=== PATIENT | female | born 1940 | race Caucasian/White ===

== ENCOUNTER 2021-11-09 18:26 | Inpatient (IN) | payer MEDICARE, MEDICAID ==
[~2021-11-09] VITALS: Ht 162.6 cm; Wt 62.1 kg
--- NOTE | 2021-11-09 18:45 | NUR ---
RN NOTE Report given by Jacoby from [place] at 1730. Received patient via gurney. Patient is A/O x 0, responds to name. On room air, breathing evenly and unlabored. No SOB or s/s of distress noted. IV access on Left wrist #20, SL intact and patent. Patient made comfortable. V/S taken: BP 130/68, HR 97, RR 19, Temp 97.5, SPO2 97% on room air. Open wound noted on Left hip. Abdominal distention noted. Bo catheter in place draining to a dark yellow, cloudy urine. Tele monitor attached, reading SR, HR on the 90's. Safety precautions in place: bed in low, locked position; siderails up x 2; call light within reach. Will endorse to animal biologist nurse for DULCE.
--- NOTE | 2021-11-09 19:25 | NUR ---
RN OPENING NOTES RECEIVED PT IN BED, AWAKE, WITH FAMILY MEMBER AT BEDSIDE. AOx1, CONGOLESE AND SWAZI SPEAKING. ON RA AND TOLERATING WELL. NO SOB NOTED. NO S/SX OF RESPIRATORY DISTRESS NOTED. TELE MONITOR DETECTS SINUS RHYTHM. IV ACCESS IN L WRIST #20G RUNNING NS @ 75 ML/HR. SAFETY PRECAUTIONS IN PLACE: BED IN LOWEST, LOCKED POSITION, SIDERAILS UPx2, AND BRAKES ON. TABLE AND CALL LIGHT WITHIN REACH. WILL CONTINUE TO MONITOR.
[2021-11-09] MEDS ORDERED: CEFTRIAXONE 1 G in IV D5W 50 ML IV SCH (20:00)
[2021-11-09] MEDS: IV NS 0.9% 1,000 ML IV PRN (20:54)
[2021-11-09] MEDS ORDERED: INSU100I4 SQ (21:01)
[2021-11-09] MEDS ORDERED: HYDR-4076 PO (21:01)
[2021-11-09] MEDS ORDERED: INSU100I26 SQ (21:01)
[2021-11-09] MEDS ORDERED: TRAM50TA2 PO (21:01)
[2021-11-09] MEDS ORDERED: LEVE500T9 PO (21:01)
[2021-11-09] MEDS ORDERED: CARV6.252 PO (21:01)
[2021-11-10] MEDS ORDERED: ZOLPIDEM TARTRATE 5 MG TABLET PO PRN
[2021-11-10] MEDS ORDERED: DEXTROSE 50%-WATER 50 ML DISP.SYRIN IV PRN
[2021-11-10] MEDS ORDERED: ONDANSETRON HCL/PF 4 MG/2 ML VIAL IVP PRN
[2021-11-10] MEDS ORDERED: MAGNESIUM HYDROXIDE 30 ML UDC PO PRN
[2021-11-10] MEDS: BLOOD SUGAR DIAGNOSTIC 1 EACH STRIP IN SCH ×4 (06:43→22:15)
[2021-11-10] MEDS: INSULIN REGULAR, HUMAN 100 UNIT/ML 3 ML VIAL SQ PRN ×4 (06:45→22:17)
--- NOTE | 2021-11-10 06:50 | NUR ---
RN CLOSING NOTES PT IN BED, ASLEEP, AWAKENS TO VERBAL STIMULI. AOx1, VIETNAMESE AND MOLDOVAN SPEAKING. ON RA AND TOLERATING WELL. NO SOB NOTED. NO S/SX OF RESPIRATORY DISTRESS NOTED. TELE MONITOR DETECTS SINUS RHYTHM WITH RATE OF 88. IV ACCESS IN L WRIST #20G RUNNING NS @ 75 ML/HR. ALL ORDERS CARRIED OUT. ALL NEEDS MET. PT KEPT CLEAN AND DRY. SAFETY PRECAUTIONS IN PLACE: BED IN LOWEST, LOCKED POSITION, SIDERAILS UPx2, AND BRAKES ON. TABLE AND CALL LIGHT WITHIN REACH. WILL ENDORSE TO ONCOMING SHIFT FOR DULCE.
--- NOTE | 2021-11-10 07:01 | NUR ---
CANE PILER OPENING NOTES RECEIVED PATIENT IN BED RESTING, A/O x1, CONFUSED. PATIENT IS PORTUGUESE AND MARTINIQUAIS SPEAKING, ON ROOM AIR, NO S/S OF SOB OR RESPIRATORY DISTRESS. ON TELE MONITORING, SHOWING SINUS RHYTHM AT THIS HR 89. NO S/S OF CARDIAC DISTRESS. PATIENT HAS LAZARO CATHETER, TEA/RACHNA COLORED URINE PRESENT, DRAINING WELL. IV ACCESS L WRIST #20 G WITH NS 75 ML/HR RUNNING, INTACT AND PATENT. SKIN ISSUE: L HIP SKIN TEAR, ON BED REST. SAFETY MEASURES IN PLACE: BED LOCKED AND IN LOWEST POSITION, SIDE RAILS UP x2, HEAD OF THE BED ELEVATED, CALL LIGHT WITHIN REACH. WILL CONTINUE TO MONITOR.
[2021-11-10 07:21] LABS: BASOPHILS % (AUTO) 0.2 % (0.0-2.0); EOSINOPHILS % (AUTO) 0.4 % (0.0-6.0); HEMATOCRIT 36 % (33-45); HEMOGLOBIN 11.1 g/dL (11.5-14.8); LYMPHOCYTES # (AUTO) 0.6 K/uL (0.8-4.8); LYMPHOCYTES % (AUTO) 4.8 % (20.0-44.0); MEAN CORPUSCULAR HGB CONC 31 g/dl (31.0-36.0); MEAN CORPUSCULAR VOLUME 95 fL (82-100); MONOCYTES # (AUTO) 0.9 K/uL (0.1-1.30); MONOCYTES % (AUTO) 7.3 % (2.0-12.0); NEUTROPHILS # (AUTO) 11.2 K/uL (1.8-8.9); NEUTROPHILS % (AUTO) 87.3 % (43.0-81.0); PLATELET COUNT (AUTO) 186 K/uL (150-450); WHITE BLOOD COUNT (AUTO) 12.8 K/uL (4.3-11.0)
[2021-11-10 08:00] VITALS: BP 149/56
[2021-11-10] MEDS: CARVEDILOL 6.25 MG TABLET PO SCH ×2 (08:48→16:50)
[2021-11-10] MEDS: LEVETIRACETAM (250 MG) 250 MG TABLET PO SCH ×2 (08:48→20:20)
[2021-11-10] MEDS: hydrALAZINE HCL 25 MG TABLET PO SCH (08:49)
[2021-11-10 09:02] LABS: CALCIUM, SERUM 8.3 mg/dL (8.5-10.1); CREATININE 0.8 mg/dL (0.6-1.3)
--- NOTE | 2021-11-10 09:33 | NUR ---
RN NOTED RECEIVED CALL FROM LAB ABOUT CRITICAL GLUCOSE RESULTS, INSULIN COVERAGE ADMINISTERED BY ELECTRONIC SCALE TESTER THIS MORNING, WILL CONTINUE TO MONITOR AND RECHECK GLUCOSE @1200
[2021-11-10] MEDS: ENOXAPARIN SODIUM 40 MG/0.4 ML DISP.SYRIN SQ SCH (10:40)
--- NOTE | 2021-11-10 12:20 | NUR ---
RN NOTES PATIENT IS TAKING TELEMETRY LEADS OFF, WILL CONTINUE TO EXPLAIN AND EDUCATE PATIENT ON LEADS.
[2021-11-10 16:00] VITALS: BP 131/62
--- NOTE | 2021-11-10 18:49 | NUR ---
WEB MACHINE TENDER CLOSING NOTE PATIENT IN BED RESTING, A/O x1, CONFUSED. PATIENT IS BURUNDIAN AND FRENCH SPEAKING. ON ROOM AIR, TOLERATED WELL, NO S/S OF SOB OR RESPIRATORY DISTRESS. ON TELE MONITORING, SHOWING SINUS RHYTHM AT THIS HR 80'S. NO S/S OF CARDIAC DISTRESS. PATIENT HAS LAZARO CATHETER, TEA/RACHNA COLORED URINE PRESENT, DRAINING WELL VIA GRAVITY. WITH IV ACCESS L WRIST #20 G WITH NS 75 ML/HR RUNNING, INTACT AND PATENT. SKIN ISSUE: L HIP SKIN TEAR, ON BED REST. SAFETY MEASURES IN PLACE: BED LOCKED AND IN LOWEST POSITION, SIDE RAILS UP x2, HEAD OF THE BED ELEVATED, CALL LIGHT WITHIN REACH. ENDORSED TO NEXT SHIFT FOR CONTINUITY OF CARE.
[2021-11-10 19:41] LABS: BILIRUBIN,URINE MODERATE (NEGATIVE); COLOR,URINE YELLOW (YELLOW); LEUKOCYTE ESTERASE ,URINE NEGATIVE (NEGATIVE); NITRITE, URINE NEGATIVE (NEGATIVE); PROTEIN,URINE 30 mg/dl (NEGATIVE); UGLUCOSE >=1000 mg/dL (NEGATIVE)
--- NOTE | 2021-11-10 19:50 | NUR ---
RN OPENING NOTES RECEIVED PT IN BED, AWAKE. AOx1, FRISIAN AND GUYANESE SPEAKING. ON RA AND TOLERATING WELL. NO SOB NOTED. NO S/SX OF RESPIRATORY DISTRESS NOTED. PT NON-COMPLIANT WITH TELE MONITOR. SAFETY PRECAUTIONS IN PLACE: BED IN LOWEST, LOCKED POSITION, SIDERAILS UPx2, AND BRAKES ON. TABLE AND CALL LIGHT WITHIN REACH. WILL CONTINUE TO MONITOR.
[2021-11-10 20:06] LABS: WBC,URINE 0-2 /HPF (0-3)
[2021-11-10 20:07] LABS: BACTERIA,URINE RARE /HPF (None Seen); SQUAMOUS EPITHELIAL CELL,UR 0-2 /HPF (None Seen); YEAST,URINE Moderate /HPF (None Seen)
[2021-11-10 20:14] VITALS: BP 129/78
[2021-11-10] MEDS: CEFTRIAXONE 1 G in IV D5W 50 ML IV SCH (20:20)
[2021-11-11 04:51] VITALS: BP 140/66
[2021-11-11] MEDS: BLOOD SUGAR DIAGNOSTIC 1 EACH STRIP IN SCH ×4 (06:33→21:53)
[2021-11-11] MEDS: INSULIN REGULAR, HUMAN 100 UNIT/ML 3 ML VIAL SQ PRN ×4 (06:35→21:55)
--- NOTE | 2021-11-11 06:46 | NUR ---
RN CLOSING NOTES PT IN BED, ASLEEP, AWAKENS TO VERBAL STIMULI. AOx1, NEPALI AND MONTENEGRIN SPEAKING. ON RA AND TOLERATING WELL. NO SOB NOTED. NO S/SX OF RESPIRATORY DISTRESS NOTED. PT NON-COMPLIANT WITH TELE MONITOR. ALL ORDESR CARRIED OUT. ALL NEEDS MET. PT KEPT CLEAN AND DRY. SAFETY PRECAUTIONS IN PLACE: BED IN LOWEST, LOCKED POSITION, SIDERAILS UPx2, AND BRAKES ON. TABLE AND CALL LIGHT WITHIN REACH. WILL ENDORSE TO ONCOMING SHIFT FOR DULCE.
--- NOTE | 2021-11-11 07:19 | NUR ---
HEAD BATCHER OPENING NOTE RECEIVED PATIENT IN BED RESTING, A/O x1, CONFUSED. PATIENT IS ON ROOM AIR, NO S/S OF SOB OR RESPIRATORY DISTRESS. ON TELE MONITORING, SHOWING SINUS RHYTHM AT THIS HR 89. NO S/S OF CARDIAC DISTRESS. PATIENT HAS LAZARO CATHETER, TEA/RACHNA COLORED URINE PRESENT, DRAINING WELL. IV ACCESS L WRIST #20 G WITH NS 75 ML/HR RUNNING, INTACT AND PATENT. SKIN ISSUE: L HIP SKIN TEAR, ON BED REST. SAFETY MEASURES IN PLACE: BED LOCKED AND IN LOWEST POSITION, SIDE RAILS UP x2, HEAD OF THE BED ELEVATED, CALL LIGHT WITHIN REACH. WILL CONTINUE TO MONITOR PATIENT.
[2021-11-11] MEDS: LEVETIRACETAM (250 MG) 250 MG TABLET PO SCH ×2 (08:32→21:13)
[2021-11-11] MEDS: hydrALAZINE HCL 25 MG TABLET PO SCH (08:33)
[2021-11-11] MEDS: CARVEDILOL 6.25 MG TABLET PO SCH ×2 (08:34→17:00)
[2021-11-11 08:57] LABS: BASOPHILS % (AUTO) 0.2 % (0.0-2.0); HEMATOCRIT 36 % (33-45); LYMPHOCYTES # (AUTO) 0.6 K/uL (0.8-4.8); LYMPHOCYTES % (AUTO) 5.2 % (20.0-44.0); MEAN CORPUSCULAR HGB CONC 31 g/dl (31.0-36.0); MEAN CORPUSCULAR VOLUME 92 fL (82-100); MONOCYTES # (AUTO) 0.9 K/uL (0.1-1.30); MONOCYTES % (AUTO) 7.9 % (2.0-12.0); NEUTROPHILS # (AUTO) 9.8 K/uL (1.8-8.9); NEUTROPHILS % (AUTO) 84.7 % (43.0-81.0); PLATELET COUNT (AUTO) 196 K/uL (150-450); RED BLOOD CELL COUNT(AUTO) 3.86 MIL/uL (4.0-5.2); WHITE BLOOD COUNT (AUTO) 11.6 K/uL (4.3-11.0)
[2021-11-11 09:22] LABS: CALCIUM, SERUM 7.9 mg/dL (8.5-10.1); CREATININE 0.6 mg/dL (0.6-1.3); POTASSIUM 5.2 mmol/L (3.5-5.1)
[2021-11-11] MEDS: ENOXAPARIN SODIUM 40 MG/0.4 ML DISP.SYRIN SQ SCH (09:30)
--- NOTE | 2021-11-11 09:50 | NUR ---
MS RN NOTE SEEN BY DR. ALVARENGA.
--- NOTE | 2021-11-11 10:48 | NUR ---
WOUND CARE CONSULT: PT PRESENTS WITH STAGE 3 PRESSURE ULCER TO LEFT HIP AREA, PRESENT ON ADMISSION. RECOMMENDATIONS MADE FOR SKIN PROTECTION. DISCUSSED WITH NURSING STAFF. DR JEAN NOTIFIED OF SURGICAL CONSULT REQUEST. PT IS ON TRACY ISOFLEX LOW AIRLOSS BED. VIPUL AGREEMENT WITH PLAN OF CARE. Addendum: 11/11/21 at 1050 by NICHO ABDI WNDNU Amended: Links added.
[2021-11-11] MEDS ORDERED: Z GUARD REMEDY 4 OZ OINT TP PRN (11:00)
--- NOTE | 2021-11-11 11:30 | NUR ---
MS RN NOTE SEEN BY WOUND CARE NURSE NICHO AND WIRELESS SALES ASSOCIATE JEANNINE FOR SERIAL DEBRIDEMENT. IN STABLE CONDITION.
[2021-11-11] MEDS: ACETAMINOPHEN 325 MG TABLET PO PRN (14:24)
[2021-11-11 16:01] VITALS: BP 113/54
--- NOTE | 2021-11-11 16:30 | NUR ---
MS RN NOTE SPOKE WITH PATIENT'S DAUGHTER CANDACE AND UPDATED ON PLAN, SECURED CONSENT FOR SERIAL DEBRIDEMENT AND ATTACHED TO CHART. IN STABLE CONDITION.
[2021-11-11] MEDS: THERAHONEY GEL 1.5 OZ TUBE TP SCH (16:53)
[2021-11-11] MEDS: Z GUARD REMEDY 4 OZ OINT TP SCH (16:53)
--- NOTE | 2021-11-11 19:00 | NUR ---
DOCKETING SPECIALIST CLOSING NOTE PATIENT IN BED RESTING, A/O x1-2. PATIENT IS ON ROOM AIR, NO S/S OF SOB OR RESPIRATORY DISTRESS. NO S/S OF CARDIAC DISTRESS. PATIENT HAS LAZARO CATHETER, RACHNA COLORED URINE PRESENT, DRAINING WELL. IV ACCESS L WRIST #20 G WITH NS 75 ML/HR RUNNING, INTACT AND PATENT. SKIN ISSUE: L HIP SKIN TEAR, ON BED REST. SAFETY MEASURES IN PLACE: BED LOCKED AND IN LOWEST POSITION, SIDE RAILS UP x2, HEAD OF THE BED ELEVATED, CALL LIGHT WITHIN REACH. ENDORSED PATIENT TO NEXT SHIFT FOR CONTINUITY OF CARE.
--- NOTE | 2021-11-11 19:30 | NUR ---
MS RN OPENING NOTE RECEIVED PATIENT IN BED, WITH EYES CLOSED, EASY TO AROUSE. PATIENT IS YI/GHANAIAN SPEAKING. NO S/S OF APPARENT DISTRESS IN ROOM AIR. DENIES PAIN AND DISCOMFORT AT THIS TIME. IV ACCESS NOTED TO BE OCCLUDED-- WILL REINSERT NEW ONE. LAZARO CATH NOTED TO BE DRAINING CLEAR DARK YELLOW URINE. SAFETY IN PLACE. WILL CONTINUE WITH PATIENT'S PLAN OF CARE.
[2021-11-11 20:00] VITALS: BP 104/50
[2021-11-11] MEDS: CEFTRIAXONE 1 G in IV D5W 50 ML IV SCH (21:02)
[2021-11-12] MEDS: BLOOD SUGAR DIAGNOSTIC 1 EACH STRIP IN SCH ×4 (06:44→21:43)
[2021-11-12] MEDS: INSULIN REGULAR, HUMAN 100 UNIT/ML 3 ML VIAL SQ PRN ×4 (06:45→21:46)
--- NOTE | 2021-11-12 07:23 | NUR ---
MS RN NOTE REPORT GIVEN TO ROBERTO COLLADO FOR CONTINUITY OF CARE.
[2021-11-12 08:00] VITALS: BP 113/57
[2021-11-12] MEDS: GLUCERNA SHAKE 237 ML CAN PO SCH (09:00)
[2021-11-12] MEDS: hydrALAZINE HCL 25 MG TABLET PO SCH (09:00)
[2021-11-12] MEDS ORDERED: LEVO500T90 PO (09:12)
[2021-11-12 09:49] LABS: BASOPHILS % (AUTO) 0.1 % (0.0-2.0); EOSINOPHILS % (AUTO) 1.4 % (0.0-6.0); HEMATOCRIT 35 % (33-45); HEMOGLOBIN 10.5 g/dL (11.5-14.8); LYMPHOCYTES # (AUTO) 0.7 K/uL (0.8-4.8); LYMPHOCYTES % (AUTO) 6.1 % (20.0-44.0); MEAN CORPUSCULAR HGB CONC 30 g/dl (31.0-36.0); MEAN CORPUSCULAR VOLUME 98 fL (82-100); MONOCYTES # (AUTO) 1.2 K/uL (0.1-1.30); MONOCYTES % (AUTO) 10.3 % (2.0-12.0); NEUTROPHILS # (AUTO) 9.5 K/uL (1.8-8.9); NEUTROPHILS % (AUTO) 82.1 % (43.0-81.0); PLATELET COUNT (AUTO) 173 K/uL (150-450); RED BLOOD CELL COUNT(AUTO) 3.58 MIL/uL (4.0-5.2); WHITE BLOOD COUNT (AUTO) 11.6 K/uL (4.3-11.0)
[2021-11-12 09:52] LABS: CALCIUM, SERUM 7.6 mg/dL (8.5-10.1); CREATININE 0.6 mg/dL (0.6-1.3); POTASSIUM 4.5 mmol/L (3.5-5.1)
[2021-11-12] MEDS: CARVEDILOL 6.25 MG TABLET PO SCH ×2 (10:19→17:00)
[2021-11-12] MEDS: LEVETIRACETAM (250 MG) 250 MG TABLET PO SCH ×2 (10:19→21:32)
[2021-11-12] MEDS: ENOXAPARIN SODIUM 40 MG/0.4 ML DISP.SYRIN SQ SCH (10:21)
[2021-11-12] MEDS: THERAHONEY GEL 1.5 OZ TUBE TP SCH (10:31)
[2021-11-12] MEDS: Z GUARD REMEDY 4 OZ OINT TP SCH (10:31)
[2021-11-12] MEDS: IV NS 0.9% 1,000 ML IV PRN (10:46)
[2021-11-12 13:12] LABS: BILIRUBIN,TOTAL 1.5 mg/dL (0.2-1.0); TOTAL PROTEIN, SERUM 5.8 g/dL (6.4-8.2)
[2021-11-12 13:21] LABS: BILIRUBIN,DIRECT 0.6 mg/dL (0.0-0.2)
[2021-11-12 13:36] LABS: ALBUMIN 1.4 g/dL (3.4-5.0)
[2021-11-12 14:00] LABS: THYROID STIMULATING HORMONE 1.119 uIU/mL (0.358-3.74)
[2021-11-12 16:00] VITALS: BP 110/80
[2021-11-12] MEDS: ACETAMINOPHEN 325 MG TABLET PO PRN (16:10)
--- NOTE | 2021-11-12 16:18 | NUR ---
dtr. in to visit.medicated for pain with tylenol.
--- NOTE | 2021-11-12 19:45 | NUR ---
MS RN OPENING NOTE RECEIVED PATIENT IN BED WITH EYES CLOSED, EASY TO AROUSE. NO S/S OF APPARENT DISTRESS IN ROOM AIR. DENIES PAIN NOR ANY DISCOMFORT AT THIS TIME. IV NS RUNNING @75 MLS/HR. LAZARO CATH IN PLACE. RE-ORIENTED AND ENCOURAGED WITH THE USE OF CALL LIGHT. SAFETY IN PLACE. WILL CONTINUE WITH PLAN OF CARE FOR PATIENT.
[2021-11-12 20:00] VITALS: BP 119/60
[2021-11-12] MEDS: CEFTRIAXONE 1 G in IV D5W 50 ML IV SCH (21:33)
[2021-11-13] MEDS: IV NS 0.9% 1,000 ML IV PRN (01:46)
[2021-11-13] MEDS: ACETAMINOPHEN 325 MG TABLET PO PRN ×2 (01:56→09:31)
[2021-11-13] MEDS: BLOOD SUGAR DIAGNOSTIC 1 EACH STRIP IN SCH ×4 (06:30→21:41)
[2021-11-13] MEDS: INSULIN REGULAR, HUMAN 100 UNIT/ML 3 ML VIAL SQ PRN ×4 (06:32→21:44)
[2021-11-13 07:07] LABS: IMMUNOGLOBULIN A, SERUM 465 mg/dL (64-422); IMMUNOGLOBULIN G, SERUM 1717 mg/dL (586-1602); IMMUNOGLOBULIN M, SERUM 43 mg/dL (26-217)
--- NOTE | 2021-11-13 07:27 | NUR ---
MS RN OPENING NOTES RECEIVED PT IN BED AWAKE. A/O X1-2, REORIENTED PT NEEDED. ON RA, TOLERATING WELL. NO SOB NOTED. NOT IN ANY SIGN OF RESPIRATORY DISTRESS. IV ACCESS IN R WRIST INTACT AND PATENT WITH NS INFUSING AT 75ML/HR. LAZARO CATH IN PLACE AND DRAINING WELL. SAFETY MEASURES IN PLACE: BED IN LOWEST AND LOCKED POSITION, SIDE RAILS UP, BED ALARM ON, AND CALL LIGHT WITHIN REACH.
--- NOTE | 2021-11-13 07:29 | NUR ---
MS RN CLOSING NOTE NEEDS ATTENDED. REPORT GIVEN TO ROBERTO CASTILLO FOR CONTINUITY OF CARE.
[2021-11-13 08:00] VITALS: BP 144/73
[2021-11-13] MEDS: LEVETIRACETAM (250 MG) 250 MG TABLET PO SCH ×2 (09:11→21:41)
[2021-11-13] MEDS: ENOXAPARIN SODIUM 40 MG/0.4 ML DISP.SYRIN SQ SCH (09:11)
[2021-11-13] MEDS: CARVEDILOL 6.25 MG TABLET PO SCH ×2 (09:12→16:21)
[2021-11-13] MEDS: hydrALAZINE HCL 25 MG TABLET PO SCH (09:12)
[2021-11-13] MEDS: GLUCERNA SHAKE 237 ML CAN PO SCH (09:13)
[2021-11-13] MEDS: Z GUARD REMEDY 4 OZ OINT TP SCH (09:27)
[2021-11-13] MEDS: THERAHONEY GEL 1.5 OZ TUBE TP SCH (09:27)
[2021-11-13 13:07] LABS: *SPE A/G RATIO 0.6 (0.7-1.7); *SPE ALPHA-1-GLOBULIN 0.3 g/dL (0.0-0.4); *SPE ALPHA-2-GLOBULIN 0.7 g/dL (0.4-1.0); *SPE BETA GLOBULIN 0.7 g/dL (0.7-1.3); *SPE M-SPIKE Not Observed g/dL (Not Observed)
[2021-11-13 16:12] VITALS: BP 131/68
[2021-11-13] MEDS: FERROUS SULFATE (325 MG) 325 MG/TAB TABLET PO SCH (16:21)
--- NOTE | 2021-11-13 18:36 | NUR ---
MS RN CLOSING NOTES PT IN BED AWAKE. A/O X1-2, REORIENTED PT NEEDED. ON RA, TOLERATING WELL. NO SOB NOTED. NOT IN ANY SIGN OF RESPIRATORY DISTRESS. IV ACCESS IN R WRIST SALINE LOCK, INTACT AND PATENT. LAZARO CATH IN PLACE AND DRAINING WELL. ALL NEEDS ATTENDED. KEPT CLEAN AND COMFORTABLE. SAFETY MEASURES IN PLACE: BED IN LOWEST AND LOCKED POSITION, SIDE RAILS UP, BED ALARM ON, AND CALL LIGHT WITHIN REACH. WILL ENDORSE TO SLAT BASKET MAKER MACHINE NURSE FOR DULCE.
[2021-11-13 20:10] VITALS: BP 120/74
[2021-11-13] MEDS: CEFTRIAXONE 1 G in IV D5W 50 ML IV SCH (21:30)
--- NOTE | 2021-11-14 00:55 | NUR ---
MS/TELE/RN PATIENT IS SLEEPING AT THIS TIME, APPEARS COMFORTABLE, NO SIGNS OF DISTRESS NOTED, CALL LIGHT IN REACH, WILL CONTINUE TO MONITOR.
[2021-11-14] MEDS: INSULIN REGULAR, HUMAN 100 UNIT/ML 3 ML VIAL SQ PRN ×2 (06:48→11:26)
[2021-11-14] MEDS: BLOOD SUGAR DIAGNOSTIC 1 EACH STRIP IN SCH ×2 (06:59→11:24)
--- NOTE | 2021-11-14 07:01 | NUR ---
MS/TELE/RN PATIENT IS AWAKE, ALERT, ORIENTED, NO SIGNS OF DISTRESS NOTED, CALL LIGHT IN REACH, ALL NEEDS ATTENDED AT THIS TIME, WILL CONTINUE TO MONITOR.
--- NOTE | 2021-11-14 07:07 | NUR ---
MS RN OPENING NOTES RECEIVED PATIENT SLEEPING IN BED, A/O x1. RESPONSIVE TO VERBAL AND TACTILE STIMULI. LITHUANIAN SPEAKING. ON ROOM AIR NO S/S OF SOB OR RESPIRATORY DISTRESS NOTED. PATIENT HAS LAZARO CATHETER, DRAINING WELL DARK YELLOW DRAINAGE NOTED. IV ACCESS R WRIST #22 SL, INTACT AND PATENT. NO S/S OF INFILTRATION. SKIN ISSUES: L HIP STAGE 3 S/P DEBRIDEMENT 11/12. DRESSING IN PLACE, NO S/S OF DRAINAGE. SAFETY MEASURES IN PLACE: BED LOCKED AND IN LOWEST POSITION, SIDE RAILS UP x2, CALL LIGHT WITHIN REACH. WILL CONTINUE TO MONITOR.
[2021-11-14 08:22] VITALS: BP 130/74
[2021-11-14] MEDS: hydrALAZINE HCL 25 MG TABLET PO SCH (08:35)
[2021-11-14] MEDS: FERROUS SULFATE (325 MG) 325 MG/TAB TABLET PO SCH (08:35)
[2021-11-14] MEDS: CARVEDILOL 6.25 MG TABLET PO SCH (08:35)
[2021-11-14] MEDS: LEVETIRACETAM (250 MG) 250 MG TABLET PO SCH (08:35)
[2021-11-14] MEDS: ENOXAPARIN SODIUM 40 MG/0.4 ML DISP.SYRIN SQ SCH (08:37)
[2021-11-14] MEDS: THERAHONEY GEL 1.5 OZ TUBE TP SCH (08:38)
[2021-11-14] MEDS: Z GUARD REMEDY 4 OZ OINT TP SCH (08:39)
[2021-11-14] MEDS: GLUCERNA SHAKE 237 ML CAN PO SCH (08:39)
[2021-11-14] MEDS: ACETAMINOPHEN 325 MG TABLET PO PRN (11:28)
--- NOTE | 2021-11-14 12:00 | NUR ---
RN NOTES PATIENT BS [id number], ADMINISTERED 6 UNITS OF INSULIN. WILL CONTINUE TO MONITOR.
[2021-11-14 16:11] VITALS: BP 108/52
--- NOTE | 2021-11-14 16:33 | NUR ---
MS REFRIGERATION SPECIALIST NOTES PATIENT DISCHARGED TO [facility]. A/O x1. PATIENT STABLE ON ROOM AIR, NO S/S OF SOB OR RESPIRATORY DISTRESS. FC REMOVED: 200 ML OUTPUT. IV ACCESS ON R HAND REMOVED, PRESSURE APPLIED, NO S/S OF BLEEDING. DRESSING ON L HIP IN PLACE, NO S/S OF INFECTION OR DRAINAGE. PATIENT IS CONFUSED AND UNABLE TO UNDERSTAND DISCHARGE INSTRUCTIONS AND HEALTH EDUCATION. REPORT GIVEN TO [facility] RN. DAUGHTER, CANDACE, INFORMED OF DISCHARGE. PATIENT LEFT UNIT @ 1610 ACCOMPANIED BY 2 self propelled dredge operator. MD AND CHARGE NURSE AWARE OF DISCHARGE.
== END 2021-11-14 16:30 | DRG 720 ==
LOC: TELE 18:26 → MED 11-11 11:52
PROVIDERS: ADMIT Nurse Practitioner Acute Care; ATTEND Internal Medicine
PROC: 0JBM0ZZ Excision of Left Upper Leg Subcutaneous Tissue and Fascia, Open Approach (ICD-10-PCS; principal; 2021-11-12)
DX: A41.9 Sepsis, unspecified organism (principal); G93.41 Metabolic encephalopathy; L89.223 Pressure ulcer of left hip, stage 3; E87.2 Acidosis; N17.9 Acute kidney failure, unspecified; C18.9 Malignant neoplasm of colon, unspecified; E87.1 Hypo-osmolality and hyponatremia; C78.7 Secondary malignant neoplasm of liver and intrahepatic bile duct; D64.9 Anemia, unspecified; R65.20 Severe sepsis without septic shock; E86.0 Dehydration; K76.1 Chronic passive congestion of liver; N39.0 Urinary tract infection, site not specified; Z20.822 Contact with and (suspected) exposure to COVID-19; I25.10 Atherosclerotic heart disease of native coronary artery without angina pectoris; E11.9 Type 2 diabetes mellitus without complications; M41.9 Scoliosis, unspecified; M19.011 Primary osteoarthritis, right shoulder; E87.5 Hyperkalemia; Z86.73 Personal history of transient ischemic attack (TIA), and cerebral infarction without residual deficits; J84.9 Interstitial pulmonary disease, unspecified
CPT/HCPCS: 36415; 70551-TC; 71250-TC; 80048-TC; 80061-TC; 80076-TC; 81001; 82378; 82607-TC; 82728-TC; 82784; 82962-TC; 83540-TC; 83735-TC; 84100-TC; 84155; 84165; 84443-TC; 85025-TC; 86334; 87040-TC; 87081-TC; 87086-TC; 97112-TC; 97116-TC; 97530-TC; A6253; A6403; G0378; J0696; J1650; J1815; J2405; J7030; J7040; J7060